=== PATIENT | female | born 1945 | race Caucasian/White ===

== ENCOUNTER 2017-11-30 09:25 | Emergency (ER) | payer OTHER, BC ==
[2017-11-30 09:34] VITALS: TEMP 98.2; BMI 51.2
--- NOTE | 2017-11-30 09:50 | PDOC ---
History of Present Illness - History of Present Illness Initial Comments: This patient is a 72 year old female with a PMHx of sleep apnea (on cpap at night for 2 weeks), HTN, hypothyroidism, who presents to the ER for persistent cough and weakness. Patient states that a couple weeks ago she was diagnosed and treated for bronchitis. She was given a z-pack and ProAir in which she completed approx 2 weeks ago. A few days afterwards she states that she was no longer coughing up green sputum. Today she is still experiencing a non- productive cough and states that she feels weak. She states that she called her doctor last night who advised her to come to the ER. Denies any vomiting, diarrhea, spontaneous bleeding, easy bruising. PCP: Dr. 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 <Eliane Moe - Last Filed: 11/30/17 11:01> - General History Source: Patient Exam Limitations: No Limitations <Sergio Mendoza - Last Filed: 11/30/17 15:45> - General Chief Complaint: Respiratory Stated Complaint: CONGESTION Time Seen by Provider: 11/30/17 09:43 Past History <Eliane Moe - Last Filed: 11/30/17 11:01> - Past Medical History COPD: No CHF: No DVT: No HTN: Yes Thyroid Disease: Yes Other medical history: slepp apnea - Surgical History GI Surgery: Yes - Immunization History Immunization Up to Date: No - Suicide/Smoking/Psychosocial Hx Smoking History: Never smoked Have you smoked in the past 12 months: No Information on smoking cessation initiated: No Hx Alcohol Use: No Drug/Substance Use Hx: No <Sergio Mendoza - Last Filed: 11/30/17 15:45> - Past Medical History Allergies/Adverse Reactions: Allergies Allergy/AdvReac Type Severity Reaction Status Date / Time No Known Allergies Allergy Verified 08/09/16 09:56 Review of Systems - Review of Systems Comments:: CONSTITUTIONAL: +generalized weakness. No fever, no chills, no fatigue EYES: No visual changes ENT: No ear pain, no sore throat CARDIOVASCULAR: No chest pain, no palpitations RESPIRATORY: + non productive cough, no SOB GI: No abdominal pain, no nausea, no vomiting, no constipation, no diarrhea GENITOURINARY: No dysuria, no frequency, no hematuria MUSKULOSKELETAL: No back pain, no joint pain, no myalgias SKIN: No rash NEURO: No headache <Eliane Moe - Last Filed: 11/30/17 11:01> *Physical Exam - Vital Signs Last Vital Signs Temp Pulse Resp BP Pulse Ox 98.2 F 62 16 131/66 98 11/30/17 09:31 11/30/17 09:31 11/30/17 09:31 11/30/17 09:31 11/30/17 09:31 - Physical Exam Comments: CONSTITUTIONAL: Well-appearing; well-nourished; in no apparent distress HEAD: Normocephalic; atraumatic EYES: PERRL; EOM intact ENMT: External appears normal; normal oropharynx NECK: Supple; nontender; no cervical lymphadenopathy CARD: Normal S1, S2; no murmurs, rubs, or gallops RESP: Normal chest excursion with respiration; no wheezes, intermittent rhonchi b/l R>L. ABD: Soft, morbidly obese, non-distended; non-tender; no palpable organomegaly, no palpable hernias EXT: LE edema 2+. Normal ROM in all four extremities; non-tender to palpation; distal pulses intact SKIN: Warm, dry, no rash NEURO: No focal neurological deficiencies. <Eliane Moe - Last Filed: 11/30/17 11:01> - Vital Signs Last Vital Signs Temp Pulse Resp BP Pulse Ox 98.2 F 62 16 131/66 98 11/30/17 09:31 11/30/17 09:31 11/30/17 09:31 11/30/17 09:31 11/30/17 09:31 <Sergio Mendoza - Last Filed: 11/30/17 15:45> Heart Score/ECG Review - ECG Intrepretation Comment:: EKG interpretation: Sinus bradycardia with 1st degree AV block Vent. rate 58 bpm 30-Nov-2017 10:42:22 <Eliane Moe - Last Filed: 11/30/17 11:01> ED Treatment Course - LABORATORY CBC & Chemistry Diagram: 11/30/17 10:52 11/30/17 10:52 <Eliane Moe - Last Filed: 11/30/17 11:01> - LABORATORY CBC & Chemistry Diagram: 11/30/17 10:52 11/30/17 12:33 <Sergio Mendoza - Last Filed: 11/30/17 15:45> Medical Decision Making - Medical Decision Making 11/30/17 15:44 72-year-old female with history of bilateral lower extremity edema, hypertension presents to the ER with persistent nonproductive cough 2 weeks after completing treatment with a Z-Jamie as well as generalized weakness, malaise and persistent lower extremity edema despite compliance with her Lasix regimen. In the ER, patient is nontoxic-appearing, afebrile, hemodynamically stable. Chest x-ray reveals no evidence of infiltrate or effusion. There is no cardiomegaly or pulmonary edema. EKG reveals no evidence of acute ischemia. D- dimer and BMP within normal limit. We'll administer an additional dose of IV Lasix for diuresis lower extremity edema. Case discussed with Dr. Alexandra. Patient safe for discharge with outpatient follow-up. <Sergio Mendoza - Last Filed: 11/30/17 15:45> *DC/Admit/Observation/Transfer - Attestations Scribe Attestion: 11/30/17 10:27 Documentation prepared by Eliane Moe, acting as neuropsychology medical consultant for Sergio Mendoza MD. <Eliane Moe - Last Filed: 11/30/17 11:01> - Attestations Physician Attestion: 11/30/17 15:44 The documentation was prepared by the scribe under my direct supervision. I have reviewed the documentation which correctly represents the findings, medical decision-making and critical action taken by me. <Sergio Mendoza - Last Filed: 11/30/17 15:45> Diagnosis at time of Disposition: Cough, Leg edema - Discharge Dispostion Disposition: HOME Condition at time of disposition: Stable - Referrals Referrals: Partha Lacy MD [Staff Physician] - - Patient Instructions Printed Discharge Instructions: Cough, DI for Peripheral Edema -- Bilateral
[2017-11-30 11:01] LABS: BASO % 0.4 % (0-2.0); EOS % 1.6 % (0-4.5); HEMOGLOBIN 12.8 GM/dL (10.7-15.3); LYMPH % 34.7 % (8-40); MCH 27.4 pg (25.7-33.7); MCHC 32.1 g/dl (32.0-36.0); MEAN CELL VOLUME 85.4 fl (80-96); MEAN PLT VOLUME 9.3 fl (7.5-11.1); MONO % 8.9 % (3.8-10.2); NEUT % 54.4 % (42.8-82.8); PLATELET COUNT 234 K/MM3 (134-434); RBC 4.68 M/mm3 (3.60-5.2); RDW 15.6 % (11.6-15.6); WHITE BLOOD COUNT 7.6 K/mm3 (4.0-10.0)
[2017-11-30 13:10] LABS: ALBUMIN 3.7 g/dl (3.4-5.0); ALK PHOS 124 U/L (45-117); ANION GAP 7 MMOL/L (8-16); BILIRUBIN,TOTAL 0.5 mg/dL (0.2-1); BLOOD UREA NITROGEN 21 mg/dL (7-18); CALCIUM 8.7 mg/dL (8.5-10.1); CHLORIDE 104 mmol/L (98-107); CO2 33 mmol/L (21-32); CREATININE 0.7 mg/dL (0.55-1.3); GLUCOSE,RANDOM 87 mg/dL (74-106); POTASSIUM 3.8 mmol/L (3.5-5.1); SGOT/AST 22 U/L (15-37); SGPT/ALT 23 U/L (13-61); SODIUM 144 mmol/L (136-145); TOT PROT 6.7 g/dl (6.4-8.2)
[2017-11-30 13:49] LABS: N-TERMINAL BNP 81.7 pg/ml (5-125)
--- NOTE | 2017-11-30 15:17 | EKG ---
Test Reason : Blood Pressure : / mmHG Vent. Rate : 058 BPM Atrial Rate : 058 BPM P-R Int : 220 ms QRS Dur : 100 ms QT Int : 446 ms P-R-T Axes : 045 -21 018 degrees QTc Int : 437 ms SINUS BRADYCARDIA WITH 1ST DEGREE A-V BLOCK OTHERWISE NORMAL ECG NO PREVIOUS ECGS AVAILABLE Confirmed by MIRACLE LOPEZ MD ([id number]) on 11/30/2017 3:17:20 PM Referred By: Confirmed By:MIRACLE LOPEZ MD
[2017-11-30] MEDS ORDERED: FUROSEMIDE 40 MG/4 ML INJECTABLE VIAL IVPUSH ONE (15:20)
[2017-11-30] MEDS ORDERED: FUROSEMIDE 40 MG/4 ML INJECTABLE VIAL ONE (15:22)
[2017-11-30 16:00] VITALS: BP 138/72; PULSE 68
== END 2017-11-30 15:57 | disposition home or self-care (01) ==
LOC: JER 09:25
PROC: 3E033GC Introduction of Other Therapeutic Substance into Peripheral Vein, Percutaneous Approach (ICD-10-PCS; principal; 2017-11-30)
DX: R05 Cough (principal); M79.89 Other specified soft tissue disorders
CPT/HCPCS: 36415; 71046-TC-FY; 80053; 83880; 85025; 85379; 93005; 93010; 96374; 99282-25